=== PATIENT | male | born 1955 | race Caucasian/White ===

== ENCOUNTER → 2020-06-25 08:53 | Outpatient (CLI) | payer OTHER, SELFPAY ==
[2020-06-27 13:19] LABS: COVID19 Sendout Not Detected
== END ==
PROVIDERS: PCP Family Medicine; Visit Provider Physician Assistant
DX: Z03.818 Encounter for observation for suspected exposure to other biological agents ruled out (principal)
CPT/HCPCS: 87635

== ENCOUNTER 2020-06-28 08:57 | Day surgery (SDC) | payer OTHER, SELFPAY ==
[2020-06-28] VITALS (8 sets, daily range): BP systolic 100–121; BP diastolic 64–78; PULSE 61–665; RESP 10–16; TEMP 36.5–37.1; O2SAT 95–97; BMI 26.4
[2020-06-28] MEDS: LACTATED RINGERS 1,000 ML 200 ML IV (09:35)
--- NOTE | 2020-06-28 10:11 | P.HP_ITS ---
History of Present Illness History of Present Illness Date Patient Seen: 06/28/20 Time Patient Seen: 10:12 Chief complaint: SDC Narrative: The patient presents for colorectal sreening. Id a previous colonoscopy 5 years ago demonstrated a small polyp which was removed. No personal or family history of colon cancer. On further history denies any recent gastrointestinal symptoms. No nausea, vomiting, abdominal pain, loss of appetite, unexplained weight loss, change in bowel habits, diarrhea, constipation, melena, hematochezia, or bright red blood per rectum. Patient History Medical History HTN (hypertension) (Acute) PFO (patent foramen ovale) (Acute) Stroke (Acute) Surgical History (Updated 06/28/20 @ 10:13 by Adriel Alegre MD) H/O splenectomy (Acute) Family & Social History Social History: household members spouse Tobacco & Substance use: Smoking Status Never smoker alcohol intake frequency a few times a month Substance Use Type does not use Meds Home Medications and Allergies Home Medications Medication Instructions Recorded Confirmed Type [place]'s wort 200 mg PO BID 06/28/20 06/28/20 History acetaminophen 500 mg PO DAILY 06/28/20 06/28/20 History aspirin [Aspirin Childrens] 81 mg PO DAILY 06/28/20 06/28/20 History cholecalciferol (vitamin D3) 50 mcg PO DAILY 06/28/20 06/28/20 History [Vitamin D3] hydrochlorothiazide 25 mg PO DAILY 06/28/20 06/28/20 History lisinopril 20 mg PO DAILY 06/28/20 06/28/20 History rosuvastatin [Crestor] 20 mg PO DAILY 06/28/20 06/28/20 History vitamin B complex 1 tab PO DAILY 06/28/20 06/28/20 History Review of Systems Review of Systems Narrative: A 10 point review of systems is negative except as noted in the HPI Exam Vital Signs (past 8 hours): - 06/28/20 09:17 Temperature 98.8 F Pulse Rate 67 Respiratory Rate 16 Blood Pressure 121/78 Pulse Oximetry 97 Oxygen Delivery Method Room Air Narrative Exam Narrative: General-no acute distress, well nourished male HEENT-moist mucous membranes, no scleral icterus Neck-supple, no lymphadenopathy Chest- non labored respirations, clear to auscultation bilaterally Cardiac-regular rate no peripheral edema Abdomen-soft, nontender, non distended Extremities-warm, well perfused Neurological-alert and oriented, no focal deficits Assessment & Plan Assessment & Plan narrative: The patient requires colorectal screening and colonoscopy is recommended. Technical details were discussed. Risks, benefits, alternatives explained. Risks including but not limited to myocardial infarction, aspiration, bleeding, pain, missed lesion, incomplete examination, need for further radiographic studies, colonic perforation, and need for major abdominal surgery were discussed. All questions were answered to their satisfaction, and they are in agreement with this plan.
[2020-06-28] MEDS: MIDAZOLAM 5 MG/5 ML VIAL IV (10:28)
[2020-06-28] MEDS: fentaNYL 250 MCG/5 ML INJ IV (10:28)
--- NOTE | 2020-06-28 10:38 | SUR.OPER ---
Oxygen sats decreased to upper 70's, verbal stimulation and jaw thrust, oxygen was increased and nasal airway was placed by this RN. O2 sats increased into 90's.
--- NOTE | 2020-06-28 10:49 | PM.OP.ENDO ---
Operative Date/Time/Diagnoses Date of procedure: 06/28/20 Time of procedure: 10:49 Pre-op diagnosis: Screening colonoscopy Post-op diagnosis: same Procedure & Clinicians Study performed: Colonoscopy Same procedure as scheduled: Yes Indications: 65-year-old man last colonoscopy 5 years ago found polyps here for routine screening Surgeon: Adriel Alegre Procedure Notes SCOAP/Timeout: Performed Procedure in detail: Patient placed in left lateral recumbent position. Time out was performed. Procedural sedation was administered with Versed and Fentanyl. Examination began with a thorough inspection of the perianal area there was no evidence of fissures, fistulae, external hemorrhoids or cutaneous malignancy. The colonoscopy scope was then placed into the rectum the the lumen was insufflated with air. The scope was carefully advanced forward. Ultimately the cecum was intubated and confirmed by identification of the ileocecal valve, the appendiceal orifice and the confluence of the taenia. The scope was then slowly withdrawn examining colon thoroughly in all directions. In the rectum the rectal columns were identified and retroflexion of the scope was performed for inspection of the distal rectum and anal canal. The colonoscopy was notable for the followin. Quality of the preparation-fair 2. No masses or polyps 3. Sigmoid diverticulosis Scope withdrawal time: 9 Sedation minutes: 24 Findings: diverticulosis Specimen(s): none sent Complications: none Impression: Normal colonoscopy Post-procedure Recommendations: Colonscopy in 10 years Disposition: same day surgery
== END 2020-06-28 12:02 | disposition home or self-care (01) ==
PROVIDERS: PCP Family Medicine; Referring Provider Family Medicine; Visit Provider Surgery
PROC: 0DJD8ZZ Inspection of Lower Intestinal Tract, Via Natural or Artificial Opening Endoscopic (ICD-10-PCS; CPT 45378; principal; 2020-06-28 10:00)
DX: Z12.11 Encounter for screening for malignant neoplasm of colon (principal); Z86.010 Personal history of colon polyps; I10 Essential (primary) hypertension; Z86.73 Personal history of transient ischemic attack (TIA), and cerebral infarction without residual deficits; K57.30 Diverticulosis of large intestine without perforation or abscess without bleeding
CPT/HCPCS: G0105; 99152; J2250; J3010